=== PATIENT | female | born 1960 | race Hispanic/Latino ===

== ENCOUNTER → 2017-04-08 | Day surgery (SDC) | payer BC ==
[~2017-04-08] MED LIST: AMOXICILLIN250 MG PO; COLD & COUGH E118 ML PO; FENTANYL CITRATE/PF 100MCG/2 ML INJ ONE; HYDROXYCHLOROQ200 MG; HYOSCYAMINE SULFATE 0.5 MG/ML AMP ONE; MIDAZOLAM HCL 5MG/ML 2ML VIAL ONE; PROPOFOL IV EMULSION 10 MG/ML 50 ML VIAL ONE
--- NOTE | 2017-04-08 11:50 | Operative Report ---
DATE OF PROCEDURE: April 08, 2017 REFERRING PHYSICIAN: Dr. Zoie Mir. PROCEDURE PERFORMED: 1. Esophagogastroduodenoscopy with biopsies and brushings and esophageal dilatation. 2. Colonoscopy. INDICATIONS FOR ESOPHAGOGASTRODUODENOSCOPY: Dysphagia to solids, upper abdominal pain. INDICATIONS FOR COLONOSCOPY: Colorectal cancer screening. MEDICATION: Patient was done under MAC. Please see anesthesiologist's note. PROCEDURE: With the patient in the left lateral decubitus position, the flexible fiberoptic Olympus gastroscope was introduced into the esophagus under direct visualization without any difficulty. There was some scattered whitish plaques throughout the esophagus, and brushings were obtained and sent to stain for bogdan. An erosion was noted in the distal esophagus. The GE junction was with scattered nodularity, and that was biopsied. There was also a mild stricture there, and that was dilated to a size 52-[place]. The scope was then advanced with ease into the stomach, traversing a small hiatal hernia. Mucosa overlying the antrum and the body revealed some patchy erythema and mild to moderate edema, and biopsies were obtained and sent to stain for H. pylori. The pylorus was of normal contour and shape, was intubated with ease, and the scope was advanced all the way to the 2nd portion of the duodenum. The scope was then withdrawn slowly. Mucosa overlying the proximal 2nd portion and the duodenal bulb appeared to be within normal limits. The scope was then withdrawn back into the stomach and retroflexed, and the mucosa overlying the fundus and the cardia appeared to be within normal limits. The scope was then straightened out. The stomach was decompressed. The scope was subsequently withdrawn. Patient tolerated the procedure well. IMPRESSION: 1. Rule out bogdan esophagitis. 2. Mild stricture at gastroesophageal junction dilated to size 52-[place]. 3. Patchy nodularity gastroesophageal junction, biopsied. 4. Small hiatal hernia. 5. Gastritis, biopsied. Biopsies sent to stain for H. pylori. PLAN: Follow up histology. Initiate Protonix 40 mg 1 p.o. q.a.m. a.c. Patient was then turned around and after adequate lubrication of the anal canal, a flexible fiberoptic Olympus colonoscope was inserted into the rectum with ease and advanced all the way to the cecum. It was then withdrawn slowly. Mucosa overlying the cecum, ascending, transverse, descending, sigmoid and rectum grossly appeared to be within normal limits. The scope was then retroflexed into the distal rectum and moderate-sized internal hemorrhoids were noted, none of which was actively bleeding. The scope was then straightened out. It was subsequently withdrawn. Patient tolerated the procedure well. IMPRESSION: Internal hemorrhoids, none actively bleeding. PLAN: Follow up histology. Initiate high-fiber low-fat diet. Initiate high-fiber supplement. Patient might benefit from a followup colonoscopy in 5 years. Job#: [id number] EV cc:ZOIE MIR MD
== END | disposition home or self-care (01) ==
LOC: ENDO 06:20
PROVIDERS: ATTEND Internal Medicine Gastroenterology
DX: Z12.11 Encounter for screening for malignant neoplasm of colon (principal); K29.70 Gastritis, unspecified, without bleeding; K22.2 Esophageal obstruction; B37.81 Candidal esophagitis; K21.0 Gastro-esophageal reflux disease with esophagitis; K22.10 Ulcer of esophagus without bleeding; K44.9 Diaphragmatic hernia without obstruction or gangrene; K64.8 Other hemorrhoids; R00.1 Bradycardia, unspecified; Z01.810 Encounter for preprocedural cardiovascular examination; Z68.29 Body mass index [BMI] 29.0-29.9, adult
CPT/HCPCS: 43239; 43450; 45378; 93005; J1980; J2250; 43235